=== PATIENT | male | born 1980 | race Asian ===

== ENCOUNTER 2020-08-24 12:49 | Emergency (ER) | payer BC ==
[~2020-08-24] VITALS: Ht 167.6 cm; Wt 49.9 kg
[2020-08-24 12:59] VITALS: Ht 167.6 cm; Wt 49.9 kg
[2020-08-24] MEDS ORDERED: AUGMENTIN 875-1 EACH PO (13:54)
[2020-08-24 14:15] VITALS: BP 105/71
== END 2020-08-24 14:15 | disposition home or self-care (01) ==
LOC: ED 12:49
DX: S61.451A Open bite of right hand, initial encounter (principal); W54.0XXA Bitten by dog, initial encounter; Y93.89 Activity, other specified; Y92.89 Other specified places as the place of occurrence of the external cause; Y99.8 Other external cause status
CPT/HCPCS: 90715